=== PATIENT | female | born 1980 | race Caucasian/White ===

== ENCOUNTER 2016-07-14 20:18 | Emergency (ER) | payer SELFPAY ==
[~2016-07-14 20:18] MED LIST: IRON325 MG PO; NYS500UDL PO; PROZAC40 MG PO; X25 PO; Xanax
== END 2016-07-14 21:54 | disposition home or self-care (01) ==
LOC: ER 20:18
DX: S52.501D Unspecified fracture of the lower end of right radius, subsequent encounter for closed fracture with routine healing (principal); F17.200 Nicotine dependence, unspecified, uncomplicated; Z88.7 Allergy status to serum and vaccine; Z88.8 Allergy status to other drugs, medicaments and biological substances; Z79.899 Other long term (current) drug therapy
CPT/HCPCS: 99282